=== PATIENT | female | born 1960 | race Caucasian/White ===

== ENCOUNTER 2017-08-25 10:08 | Emergency (ER) | payer OTHER, SELFPAY ==
[2017-08-25 10:09] VITALS: BP 133/52; PULSE 84; RESP 18; TEMP 36.4; O2SAT 96; BMI 31.3
--- NOTE | 2017-08-25 10:33 | RAD_ITS ---
STUDY: X-RAY - RIGHT HAND, ATTENTION RIGHT THUMB. REASON FOR EXAM: Female, 56 years old. Pain following injury. TECHNIQUE: 3 view(s) of the finger were obtained. COMPARISON: None. FINDINGS: Normal metacarpal head. Normal metacarpophalangeal joint. Normal proximal phalanx. Avulsion fracture of the tuft of the distal phalanx of the thumb. Normal distal interphalangeal joint. Soft tissue laceration. RAD/Finger(s) Min 2 Views IMPRESSION: Avulsion fracture of the tuft of the distal phalanx of the thumb with overlying soft tissue swelling and laceration. Electronically Signed: Marcelo Donaldson MD at 11:26 EST Tel [phone], Service support ,
--- NOTE | 2017-08-25 10:42 | ED.VISSUMM ---
- ER Visit Summary Date of Service: 08/25/17 Chief Complaint: Right thumb laceration after being caught in a car door History of Present Illness: The patient is a 56 F dominant. Patient went to shut her car door and charted on her right thumb. She is right-hand dominant. No prior history. She is on no blood thinners. She denies other injuries. Physical Examination: Well-appearing female vital signs are stable. No acute distress. HEENT exam unremarkable. Lungs clear to auscultation. Heart regular rate and rhythm. Her right hand the right thumb at the tip just distal to the nail she is thumb laceration involvement of the skin and subcu tissue. There is no gross bony deformity. There is blood at the site. Minimal oozing currently. She has full flexion-extension of her right thumb. Otherwise the right hand is uninjured. She has normal sensation and full range of motion. Otherwise exam unremarkable. Test Results: Right thumb x-ray shows a distal phalanx tuft fracture. Read both by myself and the radiologist. Emergency Department Course and Treatment: General: Right thumb laceration. Digital nerve block with lidocaine. Wound cleaned with Shur-Clens and washed with saline. Explored. No foreign bodies were noted. Patient had full flexion-extension and sensation to her thumb. Closed using #5 4-0 Ethilon sutures. Proper hemostasis wound closure obtained. Patient was instructed on wound care. And suture removal in 10-14 days. She was placed on Keflex 500 mg 4 times a day for 5 days due to tuft fracture. Treatment Plan: [] Disposition: Discharge Impression: Right thumb caught in car door Right thumb laceration with ER repair 3 cm Thumb tuft fracture Tetanus updated This note was generated with [employer] dictation software. It may contain incorrect words, spelling, and punctuation that were not noted in review of the chart prior to signing ED Disposition - Plan for ED Patient: Chief Complaint: Laceration Referrals: Boubacar Khan MD [Primary Care Provider] -
[2017-08-25] MEDS: Lidocaine/Epi/Tetracaine 50 ML 1 APPLIC TOPICAL (10:44)
--- NOTE | 2017-08-25 10:46 | ED.DCSUM_ITS ---
- ER Visit Summary Date of Service: 08/25/17 Chief Complaint: Right thumb laceration after being caught in a car door History of Present Illness: The patient is a 56 F dominant. Patient went to shut her car door and charted on her right thumb. She is right-hand dominant. No prior history. She is on no blood thinners. She denies other injuries. Physical Examination: Well-appearing female vital signs are stable. No acute distress. HEENT exam unremarkable. Lungs clear to auscultation. Heart regular rate and rhythm. Her right hand the right thumb at the tip just distal to the nail she is thumb laceration involvement of the skin and subcu tissue. There is no gross bony deformity. There is blood at the site. Minimal oozing currently. She has full flexion-extension of her right thumb. Otherwise the right hand is uninjured. She has normal sensation and full range of motion. Otherwise exam unremarkable. Test Results: Right thumb x-ray shows a distal phalanx tuft fracture. Read both by myself and the radiologist. Emergency Department Course and Treatment: General: Right thumb laceration. Digital nerve block with lidocaine. Wound cleaned with Shur-Clens and washed with saline. Explored. No foreign bodies were noted. Patient had full flexion -extension and sensation to her thumb. Closed using #5 4-0 Ethilon sutures. Proper hemostasis wound closure obtained. Patient was instructed on wound care. And suture removal in 10-14 days. She was placed on Keflex 500 mg 4 times a day for 5 days due to tuft fracture. Treatment Plan: [] Disposition: Discharge Impression: Right thumb caught in car door Right thumb laceration with ER repair 3 cm Thumb tuft fracture Tetanus updated This note was generated with [employer] dictation software. It may contain incorrect words, spelling, and punctuation that were not noted in review of the chart prior to signing ED Disposition - Plan for ED Patient: Chief Complaint: Laceration Referrals: Boubacar Khan MD [Primary Care Provider] -
[2017-08-25] MEDS: Diphth,Pertuss(Acell),Tet Vac 0.5 ML Vial IM (10:57)
--- NOTE | 2017-08-25 13:06 | ED.DEP ---
ED Disposition - Plan for ED Patient: Disposition: Home or Assisted Living Chief Complaint: Laceration Instructions: ED Laceration Hand Prescriptions: Cephalexin [Keflex] 250 mg PO Q6 #20 cap Referrals: Boubacar Khan MD [Primary Care Provider] - 10-14 Days suture removal Additional Instructions: Wound clean. No soaking in dirty water. Tylenol Motrin for pain. Ice and elevate. You have a distal thumb tuft fracture. We placed on Keflex for 5 days. Suture removal in 10-14 days. Return if any signs of infection.
[2017-08-25 13:19] VITALS: RESP 17
== END 2017-08-25 13:24 | disposition home or self-care (01) ==
PROVIDERS: Emergency Provider Emergency Medicine; Family Provider Family Medicine; PCP Family Medicine
DX: S62.521A Displaced fracture of distal phalanx of right thumb, initial encounter for closed fracture (principal); S61.011A Laceration without foreign body of right thumb without damage to nail, initial encounter; W23.0XXA Caught, crushed, jammed, or pinched between moving objects, initial encounter; Y93.9 Activity, unspecified; Y92.9 Unspecified place or not applicable; Z23 Encounter for immunization; Z90.710 Acquired absence of both cervix and uterus
CPT/HCPCS: 12002; 73140; 90471; 90715; 99284

== ENCOUNTER → 2018-01-10 13:09 | Outpatient (CLI) | payer OTHER, SELFPAY | PROVIDERS: Family Provider Family Medicine; PCP Family Medicine; Visit Provider Otolaryngology Otolaryngology/Facial Plastic Surgery | DX: J32.9 Chronic sinusitis, unspecified (principal) | CPT/HCPCS: 87070; 87205 ==

== ENCOUNTER → 2018-03-21 07:19 | Outpatient (CLI) | payer OTHER, SELFPAY ==
--- NOTE | 2018-03-21 07:21 | BI_ITS ---
MAMMOGRAPHY - BILATERAL SCREENING REASON FOR EXAM: Female, 57 years old. Routine annual screening examination. PERTINENT HISTORY: Non-contributory. TECHNIQUE: Digital bilateral breast jaime (3D mammographic acquisition) in the CC and MLO projections. 2-D mediolateral oblique (MLO) and craniocaudad (CC) views of both breasts were obtained. CAD: Full Field Digital Mammography with Computer Added Detection was performed. COMPARISON: Comparison is made with prior examination dated December 25, 2015. FINDINGS: Breast Composition: There are scattered areas of fibroglandular density. There are no dominant masses or suspicious calcifications. Stable small benign-appearing bilateral axillary lymph nodes. No other significant abnormalities are identified. There has been no significant change since the prior study. BI/SCREENING MAMM (CAD), BILAT IMPRESSION: Stable bilateral screening mammogram. Yearly follow-up mammogram recommended. (A) ASSESSMENT CATEGORY: BIRADS Category 2: Benign. A letter regarding these results will be sent to the patient by the facility within 30 days. Approximately 10% of breast cancers are not detected by mammography. A normal mammogram should not delay biopsy of a clinically suspicious abnormality. [id number] Electronically Signed: Marcelo Donaldson MD at 9:47 EDT Tel [phone], Service support ,
== END ==
PROVIDERS: Family Provider Family Medicine; PCP Family Medicine; Referring Provider Family Medicine; Visit Provider Family Medicine
DX: Z12.31 Encounter for screening mammogram for malignant neoplasm of breast (principal)
CPT/HCPCS: 77063; 77067

== ENCOUNTER → 2018-04-24 07:27 | Outpatient (CLI) | payer OTHER, SELFPAY ==
[2018-04-24 14:36] LABS: Cholesterol 202 mg/dL (200); High Density Lipoprotein 55 mg/dL; Triglycerides 112 mg/dL; Very Low Density Lipoprotein 22 mg/dL (5-40)
[2018-04-24 14:40] LABS: Vitamin D,25 Hydroxy 34.8 ng/mL (29.95-100.01)
== END ==
PROVIDERS: Family Provider Family Medicine; PCP Family Medicine; Referring Provider Family Medicine; Visit Provider Family Medicine
DX: E55.9 Vitamin D deficiency, unspecified (principal); E78.00 Pure hypercholesterolemia, unspecified
CPT/HCPCS: 36415; 80061; 82306

== ENCOUNTER → 2018-05-30 15:49 | Outpatient (CLI) | payer OTHER, SELFPAY ==
--- NOTE | 2018-05-29 11:45 | COLBX_PTH ---
PATIENT: SANDRO JALLOH LOC: [facility] U#:[id number] AGE/SX: 64/F ROOM: RE05/30/[address]: Dr. Jarek Belcher MD : 1960 BED: DIS: SPEC #: [id number] RECD: 05/30/18 15:14 STATUS: ANTHONY REChelsy #: [id number] BLADE: 05/29/18 11:[address]: Jarek Belcher DEPT: SURGICAL PATHOLOGY RECD BY: Salty Muhammad ENTERED: 05/31/18 08:29 SP TYPE: COLON BX OTHR DR: Dr. Boubacar Khan MD [facility] Tissues: Left colon Procedures: Surgery Specimen Level IV HEADER OPERATION: Colonoscopy with polypectomy PRE-OP DIAGNOSIS: Rectal bleeding TISSUE SUBMITTED: Left colon polyp, rule out adenoma MICROSCOPIC DIAGNOSIS Left colon polyp, polypectomy: Fragments of tubular adenoma. SJ:pipo 06/01/18 MICROSCOPIC DESCRIPTION Slides are reviewed. GROSS DESCRIPTION Received in fixative is one container labeled with the patient's name and designated left colon. The specimen consists of two irregular fragments of ribeiro soft tissue that in aggregate measure 0.3 x 0.3 x 0.1 cm. The specimen is totally submitted in one cassette. / SJ:pipo 05/31/18 TC:1 CPT: 38026
--- OUTSIDE RECORDS SUMMARY | 2018-07-16 23:05 | XMS RPT_ITS ---
:1960 Author Organization [facility] Care Team Providers Name Role Phone Jarek Belcher Attending Unavailable Jarek Belcher Referring Unavailable Boubacar Khan Primary Care Unavailable Boubacar Khan Primary Care Unavailable Arslan Hall Attending Unavailable Castillo Isidro Attending Unavailable Boubacar Khan Primary Care Unavailable Castillo Isidro Referring Unavailable Boubacar Khan Attending Unavailable Boubacar Khan Referring Unavailable Boubacar Khan Primary Care Unavailable Boubacar Khan Attending Unavailable Boubacar Khan Referring Unavailable Boubacar Khan Primary Care Unavailable PROBLEMS PROBLEMS DATE TYPE CONDITION / CODE ATTENDING STATUS SOURCE 01/11/2018 Unknown J32.9 - Chronic Castillo Isidro Active [facility] sinusitis, Community unspecified / Hospital J32.9(ICD-10) Repository 09/14/2017 Unknown S61.011A - Arslan Hall Active [place] Laceration Community without foreign Hospital body of right Repository thumb without damage to nail, initial encounter / S61.011A(ICD-10) PROCEDURES PROCEDURES No Procedure Records FoundRESULTS RESULTS COLON BIOPSY (CHOOSE Observed: 05/29/2018 Status: F Source: [place] SITE) 11:45 AM [facility] REPOSITORY Patient: ASIA JALLOH : 1960 (57/F) Acct Num: [id number] Phys: Jarek Belcher Unit Num: [id number] Loc: LABSPEC Specimen: [id number] Received: 05/30/18 151 Spec Type: COLON BX TISSUES 1 TISSUES: Left colon GROSS DESCRIPTION Received in fixative is one container labeled with the patient's name and designated left colon. The specimen consists of two irregular fragments of ribeiro soft tissue that in aggregate measure 0.3 x 0.3 x 0.1 cm. The specimen is totally submitted in one cassette. / WESTON:pipo 05/31/18 TC:1 CPT: 39301 HEADER OPERATION: Colonoscopy with polypectomy PRE-OP DIAGNOSIS: Rectal bleeding TISSUE SUBMITTED: Left colon polyp, rule out adenoma MICROSCOPIC DESCRIPTION Slides are reviewed. MICROSCOPIC DIAGNOSIS Left colon polyp, polypectomy: Fragments of tubular adenoma. WESTON:pipo 06/01/18 Signed Abisai Kathleen 06/01/18 <signature on file> Performed By: #### PCOLBX #### [facility] [place] [address], [address] LIPID PROFILE Collected: 04/24/2018 Status: F Source: [place] 1:12 PM [facility] REPOSITORY TYPE CODE TESTS RESULT OUT OF RANGE REFERENCE UNITS LAB L501.4900 200 mg/dL High CHOL 202 Result Comment: <200 mg/dL Desirable 200-240 mg/dL Borderline >240 mg/dL High Risk LAB L501.5000 mg/dL Normal TRIG 112 Result Comment: The drugs N-Acetylcysteine and Metamizole may falsely depress this assay. Serum Triglycerides Reference Interval Normal <150 mg/dL Borderline high 150 - 199 mg/dL High 200 - 499 mg/dL Very High > or = 500 mg/dL LAB L501.6400 mg/dL Normal HDL 55 Result Comment: The drugs N-Acetylcysteine and Metamizole may falsely depress this assay. Reference Range HDL <40 mg/dL Low HDL Cholesterol HDL >or= 60 mg/dL High HDL Cholesterol LAB L501.6500 0-130 mg/dL Normal LDL 125 LAB L501.6600 5-40 mg/dL Normal VLDL 22 Performed By: #### L500.4100 #### [facility] [address] [place] [place], [address] VITAMIN D,25 HYDROXY Collected: 04/24/2018 Status: F Source: [place] 1:12 PM [facility] REPOSITORY TYPE CODE TESTS RESULT OUT OF RANGE REFERENCE UNITS LAB L506.1000 29.95-100.01 ng/mL Normal Vitamin D 34.8 25-OH Result Comment: Vitamin D 25(OH) Status Range Deficiency <20 ng/mL (50nmol/L) Insuffciency 20 - 30 ng/mL (50 - 75 nmol/L) Sufficiency 30 - 100 ng/mL (75 - 250 nmol/L) Toxicity >100 ng/mL (>250 nmol/L) Performed By: #### L506.1000 #### [facility] [address] [place] [place], [address] SCREENING MAMM (CAD), Observed: 03/21/2018 Status: F Source: [place] BILAT 7:21 AM [facility] REPOSITORY [facility] Imaging Services [address] [place] [address] SCREENING MAMM (CAD), BILAT MR#: [id number] Acct: [id number] Name: ASIA JALLOH Rep #: [id number] : 1960 F 57 From: Marcelo Donaldson MD PCP: Boubacar Khan MD Status: [facility] Study: SCREENING MAMM (CAD), BILAT Date of Exam: 03/21/18 Exam# [id number] Ordering Dr: Boubacar Khan MD MAMMOGRAPHY - BILATERAL SCREENING REASON FOR EXAM: Female, 57 years old. Routine annual screening examination. PERTINENT HISTORY: Non-contributory. TECHNIQUE: Digital bilateral breast jaime (3D mammographic acquisition) in the CC and MLO projections. 2-D mediolateral oblique (MLO) and craniocaudad (CC) views of both breasts were obtained. CAD: Full Field Digital Mammography with Computer Added Detection was performed. COMPARISON: Comparison is made with prior examination dated December 25, 2015. FINDINGS: Breast Composition: There are scattered areas of fibroglandular density. There are no dominant masses or suspicious calcifications. Stable small benign-appearing bilateral axillary lymph nodes. No other significant abnormalities are identified. There has been no significant change since the prior study. BI/SCREENING MAMM (CAD), BILAT IMPRESSION: Stable bilateral screening mammogram. Yearly follow-up mammogram recommended. (A) ASSESSMENT CATEGORY: BIRADS Category 2: Benign. A letter regarding these results will be sent to the patient by the facility within 30 days. Approximately 10% of breast cancers are not detected by mammography. A normal mammogram should not delay biopsy of a clinically suspicious abnormality. [id number] Electronically Signed: Marcelo Donaldson MD at 9:47 EDT Tel [phone], Service support , CC: Boubacar Khan MD [place] Encaser: Signed Observed: 01/10/2018 Status: F Source: [place] CULTURE, NOSE 8:15 AM [facility] REPOSITORY Gram Stain Gram Stain No organisms seen Nasoph. Cult No Haemophilus, Streptococcus pneumoniae, beta-hemolytic Streptococcus or Staphylococcus aureus isolated. Performed By: #### M100.0900 #### [facility] [address] [place], [address] EMERGENCY DEPARTMENT Observed: 08/25/2017 Status: F Source: [place] SUMMARY 4:55 PM [facility] REPOSITORY [facility] Medical Records Department [address] [place] [address] Emergency Department Summary 08/25/17 1042 MR#: [id number] Acct: [id number] Name: ASIA JALLOH Rep #: [id number] : 1960 56 From: Arslan Hall MD PCP: Boubacar Khan MD Status: DEP ER - ER Visit Summary Date of Service: 08/25/17 Chief Complaint: Right thumb laceration after being caught in a car door History of Present Illness: The patient is a 56 F dominant. Patient went to shut her car door and charted on her right thumb. She is right-hand dominant. No prior history. She is on no blood thinners. She denies other injuries. Physical Examination: Well-appearing female vital signs are stable. No acute distress. HEENT exam unremarkable. Lungs clear to auscultation. Heart regular rate and rhythm. Her right hand the right thumb at the tip just distal to the nail she is thumb laceration involvement of the skin and subcu tissue. There is no gross bony deformity. There is blood at the site. Minimal oozing currently. She has full flexion-extension of her right thumb. Otherwise the right hand is uninjured. She has normal sensation and full range of motion. Otherwise exam unremarkable. Test Results: Right thumb x-ray shows a distal phalanx tuft fracture. Read both by myself and the radiologist. Emergency Department Course and Treatment: General: Right thumb laceration. Digital nerve block with lidocaine. Wound cleaned with Shur-Clens and washed with saline. Explored. No foreign bodies were noted. Patient had full flexion-extension and sensation to her thumb. Closed using #5 4-0 Ethilon sutures. Proper hemostasis wound closure obtained. Patient was instructed on wound care. And suture removal in 10-14 days. She was placed on Keflex 500 mg 4 times a day for 5 days due to tuft fracture. Treatment Plan: [] Disposition: Discharge Impression: Right thumb caught in car door Right thumb laceration with ER repair 3 cm Thumb tuft fracture Tetanus updated This note was generated with [employer] software. It may contain incorrect words, spelling, and punctuation that were not noted in review of the chart prior to signing ED Disposition - Plan for ED Patient: Chief Complaint: Laceration Referrals: Boubacar Khan MD [Primary Care Provider] - What to do if you have Problems For any increased pain, shortness of breath, bleeding, nausea or vomiting, chest pain, or any unexpected problems, contact your Primary Care Provider. Call [facility] ([phone]) or report to the closest Emergency Room. Call 911 if necessary. 08/25/17 1654 <Electronically signed by Arslan Hall MD> Date Arslan Hall MD Cosigner Signature (If Indicated): Date CC: Boubacar Khan MD DISCHARGE INSTRUCTION Observed: 08/25/2017 Status: F Source: [place] 4:55 PM [facility] REPOSITORY [facility] Medical Records Department [address] [place] [address] Discharge Instruction 08/25/17 1306 MR#: [id number] Acct: [id number] Name: ASIA JALLOH Rep #: [id number] : 1960 56 From: Arslan Hall MD PCP: Boubacar Khan MD Status: DEP ER ED Disposition - Plan for ED Patient: Disposition: Home or Assisted Living Chief Complaint: Laceration Instructions: ED Laceration Hand Prescriptions: Cephalexin [Keflex] 250 mg PO Q6 #20 cap Referrals: Boubacar Khan MD [Primary Care Provider] - 10-14 Days suture removal Additional Instructions: Wound clean. No soaking in dirty water. Tylenol Motrin for pain. Ice and elevate. You have a distal thumb tuft fracture. We placed on Keflex for 5 days. Suture removal in 10-14 days. Return if any signs of infection. What to do if you have Problems For any increased pain, shortness of breath, bleeding, nausea or vomiting, chest pain, or any unexpected problems, contact your Primary Care Provider. Call [facility] ([phone]) or report to the closest Emergency Room. Call 911 if necessary. 08/25/17 1655 <Electronically signed by Arslan Hall MD> Date Arslan Hall MD Cosigner Signature (If Indicated): Date CC: Boubacar Khan MD FINGER(S) MIN 2 VIEWS Observed: 08/25/2017 Status: F Source: [place] 10:35 AM [facility] REPOSITORY [facility] Imaging Services [address] [place] [address] Finger(s) Min 2 Views MR#: [id number] Acct: [id number] Name: ASIA JALLOH Rep #: [id number] : 1960 F 56 From: Marcelo Donaldson MD PCP: Boubacar Khan MD Status: REG ER Study: Finger(s) Min 2 Views Date of Exam: 08/25/17 Exam# [id number] Ordering Dr: Arslan Hall MD STUDY: X-RAY - RIGHT HAND, ATTENTION RIGHT THUMB. REASON FOR EXAM: Female, 56 years old. Pain following injury. TECHNIQUE: 3 view(s) of the finger were obtained. COMPARISON: None. FINDINGS: Normal metacarpal head. Normal metacarpophalangeal joint. Normal proximal phalanx. Avulsion fracture of the tuft of the distal phalanx of the thumb. Normal distal interphalangeal joint. Soft tissue laceration. RAD/Finger(s) Min 2 Views IMPRESSION: Avulsion fracture of the tuft of the distal phalanx of the thumb with overlying soft tissue swelling and laceration. Electronically Signed: Marcelo Donaldson MD at 11:26 EST Tel [phone], Service support , CC: Arslan Hall MD; Boubacar Khan MD [place] Encaser: Signed ALLERGIES ALLERGIES DATE TYPE / CODE NAME / CODE REACTION SEVERITY SOURCE 08/25/2017 [address] [facility] Allergy/4160 Allergies/F00 Hospital 60396(SNOMED 2883684(RXNOR Repository CT) M) ENCOUNTERS ENCOUNTERS ADMIT/DISCHARGE ACCOUNT ADMITTING ENCOUNTER LOCATION SOURCE NUMBER CLASS 05/30/2018 [id number] Ambulatory [place] [facility] 3 [facility] ing:LABSPEC Repository 04/24/2018 [id number] Ambulatory [place] [facility] 0 [facility] ing:MTLAB Repository 03/21/2018 [id number] Ambulatory [place] 5 [facility] ing:OPBI Repository 01/10/2018 [id number] Ambulatory [place] [facility] 8 [facility] ing:LABSPEC Repository 08/25/2017/ [id number] Emergency [facility] 8 0 [facility] ing:ED Repository PAYERS PAYERS ENCOUNTER GUARANTOR PAYER SUBSCRIBER SOURCE 05/30/2018 RASHI العلي Primary Insurance:UMR RASHI العلي [place] [id number] [id number] WORKMANDOB: [facility] Number: [id number] [id number] Repository [address]Gju: (330) Date:3912-36-04OO [phone] ([facility] [address] [address]PJ: 05/30/2018 Secondary NOT GIVENUNK [place] Insurance:SELF PAY [facility] Number: Effective Repository Date:2018-05-30 04/24/2018 RASHI العلي Primary Insurance:UMR RASHI Ferreira [id number] [id number] [facility] Number: [id number] [id number] Repository [address]Wlm: (330) Date:2939-77-43HX [phone] () [address] [place] [phone]: 04/24/2018 Secondary NOT GIVENUNK [place] Insurance:SELF PAY [facility] Number: Effective Repository Date:2018-04-24 03/21/2018 RASHI J Primary Insurance:UMR RASHI J [place] [id number] [id number] WORKMANDOB: Community [place] Number: [id number], [place] [id number] Repository [address]Ndr: 330) Date:2729-80-27KZ [phone] () [address] [place] [phone]: 03/21/2018 Secondary NOT GIVENUNK [place] Insurance:SELF PAY [facility] Number: Effective Repository Date:2018-02-17 01/10/2018 Rashi J Primary Insurance:UMR RASHI J [place] [id number] [id number] WORKMANDOB: Community [place] Number: [id number] [id number] Repository [address]Naz: (330) Date:5044-30-53DP [phone] () [address] [place] [phone]: 01/10/2018 Secondary NOT GIVENUNK [place] Insurance:SELF PAY [facility] Number: Effective Repository Date:2018-01-10 08/25/2017 Rashi J Primary Insurance:UMR RASHI J [place] [id number] [id number] WORKMANDOB: Community [place] Number: [id number], [place] [id number] Repository [address]Arb: (330) Date:4966-57-27LJ [phone] () [address] [place] [phone]: 08/25/2017 Secondary NOT GIVENUNK [place] Insurance:SELF PAY [facility] Number: Effective Repository Date:2017-08-25
== END ==
PROVIDERS: Family Provider Family Medicine; PCP Family Medicine; Referring Provider Internal Medicine Gastroenterology; Visit Provider Internal Medicine Gastroenterology
DX: D12.6 Benign neoplasm of colon, unspecified (principal)
CPT/HCPCS: 88305

== ENCOUNTER → 2018-10-16 | Outpatient (CLI) | payer OTHER, SELFPAY ==
--- NOTE | 2018-10-16 07:49 | US_ITS ---
STUDY: ABDOMINAL ULTRASOUND - RIGHT UPPER QUADRANT REASON FOR VISIT: Female, 57 years old. Epigastric pain for 3 months. Intermittent nausea and vomiting. TECHNIQUE: Ultrasound evaluation of the right upper quadrant was performed with real-time and static doss-scale imaging. TECHNICAL QUALITY: Adequate. COMPARISON: None. FINDINGS: Liver: The liver measures 17 point cm. There is increased echogenicity consistent with fatty infiltration. The bile ducts are within normal limits. There is hepatic color flow. The direction of portal flow is hepatopetal. There for 2 cysts within the right liver measuring 1.9 x 1.5 x 1.4 cm and 0.9 x 0.7 x 0.7 cm. Gallbladder: Normal distended gallbladder. The gallbladder wall measures 2.6 mm. There is a negative sonographic Smith's sign. There is no pericholecystic fluid. There are no gallstones. Common Bile Duct (C.B.D.): The common bile duct measures 5.9 mm. Pancreas: Normal size of the head, body and tail of the pancreas. There is normal echogenicity of the pancreas. There is no demonstrated pancreatic mass or cyst. Right Kidney: 11.2 The right kidney measures cm. 1.4 The right cortex measures cm. There is no demonstrated renal mass or cyst. There is no right hydronephrosis. US/Abdomen Limited IMPRESSION: 1. Prominent fatty infiltrated liver. 2 small cysts are noted in the right liver. 2. Otherwise normal right upper quadrant ultrasound. Electronically Signed: Sim Cherry DO at 18:23 EDT Tel [phone], Service support ,
== END | disposition home or self-care (01) ==
LOC: US 07:47
PROVIDERS: Family Provider Family Medicine; PCP Family Medicine; Referring Provider Family Medicine; Visit Provider Family Medicine
DX: R10.13 Epigastric pain (principal)
CPT/HCPCS: 76705

== ENCOUNTER → 2018-10-18 | Outpatient (CLI) | payer OTHER, SELFPAY ==
[2018-10-18 10:19] LABS: Anion Gap 4 (5-15); BUN 13 mg/dL (7-18); BUN/Creat Ratio 12.7 RATIO (10-20); Calcium,Total 9.1 mg/dL (8.5-10.1); Chloride 105 mmol/L (98-107); Cholesterol 170 mg/dL (200); Creatinine, Serum 1.02 mg/dL (0.55-1.02); EST Glomerular Filtration Rate 59 mL/min (>60); Est Glom Filt Rate - Afr Amer 72 mL/min (>60); Glucose 94 mg/dL (74-106); High Density Lipoprotein 45 mg/dL; Potassium 4.1 mmol/L (3.5-5.1); Sodium Level 140 mmol/L (136-145); Triglycerides 187 mg/dL; Very Low Density Lipoprotein 37 mg/dL (5-40)
== END | disposition home or self-care (01) ==
LOC: MTLAB 07:52
PROVIDERS: Family Provider Family Medicine; PCP Family Medicine; Referring Provider Family Medicine; Visit Provider Family Medicine
DX: K76.0 Fatty (change of) liver, not elsewhere classified (principal)
CPT/HCPCS: 36415; 80048; 80061

== ENCOUNTER → 2019-04-11 07:38 | Outpatient (CLI) | payer OTHER, SELFPAY ==
--- NOTE | 2019-04-11 07:40 | BI_ITS ---
MAMMOGRAPHY - BILATERAL SCREENING REASON FOR EXAM: Female, 58 years old. Routine annual screening examination. PERTINENT HISTORY: Non-contributory. TECHNIQUE: Digital bilateral breast ebony (3D mammographic acquisition) in the CC and MLO projections. 2-D mediolateral oblique (MLO) and craniocaudad (CC) views of both breasts were obtained. CAD: Full Field Digital Mammography with Computer Added Detection was performed. COMPARISON: Comparison is made with prior study March 21, 2018 and December 25, 2015. FINDINGS: Breast Composition: There are scattered areas of fibroglandular density. There are no dominant masses or suspicious calcifications. Stable small benign-appearing bilateral axillary lymph nodes. No other significant abnormalities are identified. There has been no significant change since the prior study. BI/SCREEN MAMM (CAD) W/EBONY BILAT IMPRESSION: Stable bilateral screening mammogram. Yearly follow-up mammogram recommended. (A) ASSESSMENT CATEGORY: BIRADS Category 2: Benign. A letter regarding these results will be sent to the patient by the facility within 30 days. Approximately 10% of breast cancers are not detected by mammography. A normal mammogram should not delay biopsy of a clinically suspicious abnormality. [id number] Electronically Signed: Marcelo Donaldson, at 9:03 EDT , Service support ,
== END ==
PROVIDERS: Family Provider Family Medicine; PCP Family Medicine; Referring Provider Family Medicine; Visit Provider Family Medicine
DX: Z12.31 Encounter for screening mammogram for malignant neoplasm of breast (principal)
CPT/HCPCS: 77063; 77067

== ENCOUNTER → 2019-09-17 10:51 | Outpatient (CLI) | payer OTHER, SELFPAY ==
--- NOTE | 2019-09-17 10:55 | RAD_ITS ---
STUDY: X-RAY CHEST REASON FOR EXAM: Female, 58 years old. COUGH, WEAKNESS AND FATIGUE TECHNIQUE: PA and lateral views of the chest. COMPARISON: None. FINDINGS: The lungs are clear and expanded. There is no demonstrated pleural abnormality. Normal size heart. Normal mediastinum and josé miguel. Normal visualized pulmonary arteries. Normal visualized aortic arch and descending thoracic aorta. Normal visualized thoracic spine. Normal visualized ribs, clavicles, and shoulders. There is no demonstrated abnormality of the visualized soft tissue structures of the upper abdomen. RAD/Chest PA and Lateral IMPRESSION: Normal x-ray examination of the chest. Electronically Signed: Festus Land MD at 13:07 EDT Tel , Service support ,
== END ==
PROVIDERS: PCP Family Medicine; Referring Provider Family Medicine; Visit Provider Family Medicine
DX: Z20.828 Contact with and (suspected) exposure to other viral communicable diseases (principal)
CPT/HCPCS: 71046

== ENCOUNTER → 2019-09-17 13:27 | Outpatient (CLI) | payer OTHER, SELFPAY | PROVIDERS: PCP Family Medicine; Referring Provider Family Medicine; Visit Provider Family Medicine | DX: Z20.828 Contact with and (suspected) exposure to other viral communicable diseases (principal) | CPT/HCPCS: 87633 ==

== ENCOUNTER → 2019-11-14 12:04 | Outpatient (CLI) | payer OTHER, SELFPAY ==
[2019-11-14 15:40] LABS: ALB/GLOB Ratio 1.1 RATIO (0.9-2.4); AST(SGOT) 21 U/L (15-37); Alanine Aminotransfer ALT/SGPT 27 U/L (13-56); Albumin, Serum 3.6 g/dL (3.2-5.0); Alkaline Phosphatase 87 U/L (45-117); Anion Gap 6 (5-15); BUN 17 mg/dL (7-18); BUN/Creat Ratio 19.1 RATIO (10-20); Chloride 105 mmol/L (98-107); Cholesterol 174 mg/dL (200); Creatinine, Serum 0.89 mg/dL (0.55-1.02); EST Glomerular Filtration Rate 69 mL/min (>60); Est Glom Filt Rate - Afr Amer 83 mL/min (>60); Globulin 3.4 g/dL (2.2-4.2); Glucose 85 mg/dL (74-106); High Density Lipoprotein 54 mg/dL; Potassium 4.1 mmol/L (3.5-5.1); Sodium Level 139 mmol/L (136-145); Triglycerides 154 mg/dL; Very Low Density Lipoprotein 31 mg/dL (5-40)
== END ==
PROVIDERS: PCP Family Medicine; Referring Provider Family Medicine; Visit Provider Family Medicine
DX: E78.00 Pure hypercholesterolemia, unspecified (principal)
CPT/HCPCS: 36415; 80053; 80061

== ENCOUNTER → 2020-12-18 07:18 | Outpatient (CLI) | payer OTHER, SELFPAY ==
--- NOTE | 2020-12-18 07:21 | BI_ITS ---
MAMMOGRAPHY - BILATERAL SCREENING REASON FOR EXAM: Female, 60 years old. Routine annual screening examination. PERTINENT HISTORY: Non-contributory. TECHNIQUE: Digital bilateral breast ebony (3D mammographic acquisition) in the CC and MLO projections. 2-D mediolateral oblique (MLO) and craniocaudad (CC) views of both breasts were obtained. CAD: Full Field Digital Mammography with Computer Added Detection was performed. COMPARISON: Comparison is made with prior study dated 04/11/2019 and 03/21/2018. FINDINGS: Breast Composition: There are scattered areas of fibroglandular density. There are no dominant masses or suspicious calcifications. Stable benign-appearing bilateral axillary lymph nodes. No other significant abnormalities are identified. There has been no significant change since the prior study. BI/SCRN MAMM (CAD)W/EBONY BILAT IMPRESSION: Stable bilateral screening mammogram. Yearly follow-up mammogram recommended. (A) ASSESSMENT CATEGORY: BIRADS Category 2: Benign. A letter regarding these results will be sent to the patient by the facility within 30 days. Approximately 10% of breast cancers are not detected by mammography. A normal mammogram should not delay biopsy of a clinically suspicious abnormality. [id number] Electronically Signed: Marcelo Donaldson MD at 8:58 EDT , Service support ,
[2020-12-18 10:32] LABS: ALB/GLOB Ratio 1.1 RATIO (0.9-2.4); AST(SGOT) 19 U/L (15-37); Alanine Aminotransfer ALT/SGPT 27 U/L (13-56); Albumin, Serum 3.7 g/dL (3.2-5.0); Alkaline Phosphatase 84 U/L (45-117); Anion Gap 8 (5-15); BUN 17 mg/dL (7-18); BUN/Creat Ratio 17.5 RATIO (10-20); Calcium,Total 8.8 mg/dL (8.5-10.1); Chloride 103 mmol/L (98-107); Cholesterol 158 mg/dL (200); Creatinine, Serum 0.97 mg/dL (0.55-1.02); EST Glomerular Filtration Rate 62 mL/min (>60); Est Glom Filt Rate - Afr Amer 75 mL/min (>60); Globulin 3.4 g/dL (2.2-4.2); Glucose 98 mg/dL (74-106); High Density Lipoprotein 51 mg/dL; Potassium 4.4 mmol/L (3.5-5.1); Protein, Total 7.1 g/dL (6.4-8.2); Sodium Level 138 mmol/L (136-145); Triglycerides 120 mg/dL; Very Low Density Lipoprotein 24 mg/dL (5-40)
== END ==
PROVIDERS: PCP Family Medicine; Referring Provider Nurse Practitioner Family; Visit Provider Nurse Practitioner Family
DX: Z12.31 Encounter for screening mammogram for malignant neoplasm of breast (principal); E78.00 Pure hypercholesterolemia, unspecified
CPT/HCPCS: 36415; 77063; 77067; 80053; 80061

== ENCOUNTER → 2022-10-22 | Outpatient (CLI) | payer OTHER, SELFPAY | END | disposition home or self-care (01) | LOC: OPBI 07:51 | PROVIDERS: PCP Family Medicine; Referring Provider Nurse Practitioner Women's Health; Visit Provider Nurse Practitioner Women's Health | DX: Z12.31 Encounter for screening mammogram for malignant neoplasm of breast (principal) ==

== ENCOUNTER → 2022-12-28 | Outpatient (CLI) | payer OTHER, SELFPAY ==
--- NOTE | 2022-12-28 07:04 | BI_ITS ---
MAMMOGRAPHY - BILATERAL SCREENING REASON FOR EXAM: Female, 62 years old. Routine annual screening examination. PERTINENT HISTORY: Non-contributory. TECHNIQUE: Digital bilateral breast ebony (3D mammographic acquisition) in the CC and MLO projections. 2-D mediolateral oblique (MLO) and craniocaudad (CC) views of both breasts were obtained. CAD: Full Field Digital Mammography with Computer Added Detection was performed. COMPARISON: Comparison is made with prior study dated December 18, 2020 and April 11, 2019 FINDINGS: Breast Composition: There are scattered areas of fibroglandular density. There are no dominant masses or suspicious calcifications. Stable small benign-appearing bilateral axillary lymph nodes. No other significant abnormalities are identified. There has been no significant change since the prior study. BI/SCRN MAMM (CAD)W/EBONY BILAT IMPRESSION: Stable bilateral screening mammogram. Yearly follow-up mammogram recommended. (A) ASSESSMENT CATEGORY: BIRADS Category 2: Benign. A letter regarding these results will be sent to the patient by the facility within 30 days. Approximately 10% of breast cancers are not detected by mammography. A normal mammogram should not delay biopsy of a clinically suspicious abnormality. [id number] Electronically Signed: Marcelo Donaldson MD at 8:27 EDT ,
== END | disposition home or self-care (01) ==
LOC: OPBI 07:02
PROVIDERS: PCP Family Medicine; Referring Provider Nurse Practitioner Women's Health; Visit Provider Nurse Practitioner Women's Health
DX: Z12.31 Encounter for screening mammogram for malignant neoplasm of breast (principal)
CPT/HCPCS: 77063; 77067

== ENCOUNTER → 2024-07-12 | Outpatient (CLI) | payer OTHER, SELFPAY ==
--- NOTE | 2024-07-12 | COLBX_PTH ---
PATIENT: SANDRO JALLOH LOC: [facility] U#:[id number] AGE/SX: 63/F ROOM: RE07/12/[address]: Dr. Mukul Stern MD : 1960 BED: DIS: 07/12/2024 SPEC #: [id number] RECD: 07/12/24 15:01 STATUS: ANTHONY REChelsy #: [id number] BLADE: 07/12/24 00:[address]: Mukul Stern DEPT: SURGICAL PATHOLOGY RECD BY: Joseph Jaffe ENTERED: 07/13/24 09:34 SP TYPE: COLON BX OTHR DR: Dr. Rudy Phillips MD Tissues: A - Sigmoid colon biopsy B - Rectum, NOS Procedures: Surgery Specimen Level IV HEADER OPERATION: Colonoscopy PRE-OP DIAGNOSIS: Screening, family history of colon cancer TISSUE SUBMITTED: A- Sigmoid polyp, B- Rectal polyp MICROSCOPIC DIAGNOSIS A. Sigmoid polyp, biopsy: Tubular adenoma. B. Rectal polyp, biopsy: Hyperplastic polyp. SJ.mr 07/16/2024 MICROSCOPIC DESCRIPTION Slides are reviewed. GROSS DESCRIPTION Received in fixative is one container labeled with the patient's name and designated Sigmoid polyp. The specimen consists of one irregular fragment of light ribeiro soft tissue that measures 0.5 x 0.3 x 0.1 cm. The specimen is totally submitted in one cassette. B. Received in fixative is one container labeled with the patient's name and designated Rectal polyp. The specimen consists of one irregular fragment of light ribeiro soft tissue that measures 0.5 x 0.2 x 0.1 cm. The specimen is totally submitted in one cassette. 07/13/2024 TC:1 CPT:32028h5
== END | disposition home or self-care (01) ==
PROVIDERS: PCP Family Medicine; Referring Provider Surgery; Visit Provider Surgery
DX: Z85.038 Personal history of other malignant neoplasm of large intestine (principal)
CPT/HCPCS: 88305